=== PATIENT | female | born 1990 | race Two or more races ===

== ENCOUNTER 2017-11-21 15:45 | Emergency (ER) | payer BC ==
[2017-11-21 15:51] VITALS: BP 106/56; PULSE 68; TEMP 98.3; BMI 25.8
--- NOTE | 2017-11-21 15:51 | PDOC ---
Rapid Medical Evaluation Time Seen by Provider: 11/21/17 15:48 Medical Evaluation: I have performed a brief in-person evaluation of this patient. The patient presents with a chief complaint of: 8 weeks (LMP 09/25/17) with slight vaginal bleeding and lower abdominal pain Pertinent physical exam findings: none I have ordered the following: labs, ultrasound, UA/culture The patient will proceed to the ED for further evaluation. Discharge Disposition - Diagnosis Vaginal bleeding affecting early - Referrals - Patient Instructions - Post Discharge Activity
[2017-11-21 17:16] LABS: BASO % 0.4 % (0-2.0); EOS % 0.7 % (0-4.5); HEMATOCRIT 40.2 % (32.4-45.2); HEMOGLOBIN 13.3 GM/dL (10.7-15.3); LYMPH % 25.6 % (8-40); MCH 28.4 pg (25.7-33.7); MCHC 33.2 g/dl (32.0-36.0); MEAN CELL VOLUME 85.6 fl (80-96); MEAN PLT VOLUME 9.4 fl (7.5-11.1); MONO % 8.6 % (3.8-10.2); NEUT % 64.7 % (42.8-82.8); PLATELET COUNT 271 K/MM3 (134-434); RDW 13.9 % (11.6-15.6); WHITE BLOOD COUNT 5.8 K/mm3 (4.0-10.0)
[2017-11-21 17:17] LABS: URINE APPEARANCE CLEAR; URINE BILIRUBIN NEGATIVE (<2.0 mg/dL); URINE COLOR YELLOW; URINE GLUCOSE (UA) NEGATIVE (NEGATIVE); URINE KETONE NEGATIVE (NEGATIVE); URINE NITRITE NEGATIVE (NEGATIVE); URINE PROTEIN NEGATIVE (NEGATIVE); URINE UROBILINOGEN NEGATIVE mg/dL (0.2-1.0)
[2017-11-21 17:19] LABS: URINE LEUK ESTERASE 2+ (NEGATIVE)
[2017-11-21 17:20] LABS: EPI CELLS RARE /HPF (FEW); URINE BACTERIA RARE /hpf (NONE SEEN); URINE MUCUS RARE
[2017-11-21 17:52] LABS: ALBUMIN 3.9 g/dl (3.4-5.0); ANION GAP 6 (8-16); BLOOD UREA NITROGEN 13 mg/dL (7-18); CALCIUM 8.7 mg/dL (8.5-10.1); CHLORIDE 104 mmol/L (98-107); CO2 29 mmol/L (21-32); CREATININE 0.7 mg/dL (0.55-1.02); GLUCOSE,RANDOM 64 mg/dL (74-106); SGOT/AST 9 U/L (15-37); SGPT/ALT 15 U/L (12-78); SODIUM 139 mmol/L (136-145)
[2017-11-21 18:10] LABS: ALK PHOS 62 U/L (45-117); BILIRUBIN,TOTAL 0.3 mg/dL (0.2-1.0); TOT PROT 7.8 g/dl (6.4-8.2)
[2017-11-21] MEDS ORDERED: NITROFURANTOIN MACROCRYSTAL 50 MG CAPSULE (FP) PO SCH (19:00)
--- NOTE | 2017-11-21 19:03 | PDOC ---
History of Present Illness - General Chief Complaint: Vaginal Bleeding Stated Complaint: ABD PAIN, BLEEDING (6 WKS ) Time Seen by Provider: 11/21/17 15:48 - History of Present Illness Initial Comments: 11/21/17 18:57 26 F with no PMH, 8 weeks by LMP, presents to ED with 1 day of abdominal cramps and vaginal bleeding. Pt reports that she started having lower abdominal cramps today, as if she were starting her period. Pt endorses seeing a small amount of dark blood on her underwear. Denies any clots or bright red blood. Pt denies dysuria. Denies F/C. Denies flank pain. Past History - Past Medical History Allergies/Adverse Reactions: Allergies Allergy/AdvReac Type Severity Reaction Status Date / Time No Known Allergies Allergy Verified 11/21/17 15:48 Home Medications: Ambulatory Orders Nitrofurantoin Monohyd/M-Cryst [Macrobid -] 100 mg PO BID #14 capsule 11/21/17 COPD: No - Suicide/Smoking/Psychosocial Hx Smoking History: Never smoked Have you smoked in the past 12 months: No Information on smoking cessation initiated: No Hx Alcohol Use: No Drug/Substance Use Hx: No Substance Use Type: None Review of Systems - Review of Systems Comments:: 11/21/17 18:58 "GENERAL/CONSTITUTIONAL: No fever or chills. No weakness. HEAD, EYES, EARS, NOSE AND THROAT: No change in vision. No ear pain or discharge. No sore throat. CARDIOVASCULAR: No chest pain or shortness of breath. RESPIRATORY: No cough, wheezing, or hemoptysis. GASTROINTESTINAL: + lower abdominal cramps, No nausea, vomiting, diarrhea or constipation. GENITOURINARY: + vaginal spotting, No dysuria, frequency, or change in urination. MUSCULOSKELETAL: No joint or muscle swelling or pain. No neck or back pain. SKIN: No rash NEUROLOGIC: No headache, vertigo, loss of consciousness, or change in strength/ sensation. ENDOCRINE: No increased thirst. No abnormal weight change. HEMATOLOGIC/LYMPHATIC: No anemia, easy bleeding, or history of blood clots. ALLERGIC/IMMUNOLOGIC: No hives or skin allergy. " *Physical Exam - Vital Signs Last Vital Signs Temp Pulse Resp BP Pulse Ox 98.3 F 68 18 106/56 100 11/21/17 15:49 11/21/17 15:49 11/21/17 15:49 11/21/17 15:49 11/21/17 15:49 - Physical Exam Comments: 11/21/17 19:00 "GENERAL: Awake, alert, and fully oriented, in no acute distress. HEAD: No signs of trauma EYES: PERRLA, EOMI, sclera anicteric, conjunctiva clear ENT: Auricles normal inspection, hearing grossly normal, nares patent, oropharynx clear without exudates. Moist mucosa NECK: Nontender, no stepoffs, Normal ROM, supple, no lymphadenopathy, JVD, or masses LUNGS: Breath sounds equal, clear to auscultation bilaterally. No wheezes, and no crackles HEART: Regular rate and rhythm, normal S1 and S2, no murmurs, rubs or gallops ABDOMEN: + mild suprapubic TTP, Soft, nontender, normoactive bowel sounds. No guarding, no rebound. No masses : no blood or discharge in vault, no CMT, os closed EXTREMITIES: Normal range of motion, no edema. No clubbing or cyanosis. No cords, erythema, or tenderness NEUROLOGICAL: Cranial nerves II through XII intact. 5/5 strength and sensation in all extremities, Normal speech, normal gait, normal cerebellar function SKIN: Warm, Dry, normal turgor, no rashes or lesions noted. " ED Treatment Course - LABORATORY CBC & Chemistry Diagram: 11/21/17 16:49 11/21/17 16:49 - ADDITIONAL ORDERS Additional order review: Laboratory Results 11/21/17 11/21/17 11/21/17 16:49 16:49 16:35 Sodium 139 Potassium 4.0 Chloride 104 Carbon Dioxide 29 Anion Gap 6 L BUN 13 Creatinine 0.7 Creat Clearance w eGFR > 60 Random Glucose 64 L Calcium 8.7 Total Bilirubin 0.3 AST 9 L ALT 15 Alkaline Phosphatase 62 Total Protein 7.8 Albumin 3.9 Beta HCG, Quant 62414.1 Urine Color Yellow Urine Appearance Clear Urine pH 7.0 Ur Specific [place] 1.018 Urine Protein Negative Urine Glucose (UA) Negative Urine Ketones Negative Urine Blood 2+ H Urine Nitrite Negative Urine Bilirubin Negative Urine Urobilinogen Negative Ur Leukocyte Esterase 2+ H Urine WBC (Auto) 3 Urine RBC (Auto) <1 Ur Epithelial Cells Rare Urine Bacteria Rare Urine Mucus Rare Blood Type A POSITIVE Antibody Screen Negative 11/21/17 16:49 RBC 4.70 MCV 85.6 MCHC 33.2 RDW 13.9 MPV 9.4 Neutrophils % 64.7 Lymphocytes % 25.6 Monocytes % 8.6 Eosinophils % 0.7 Basophils % 0.4 Medical Decision Making - Medical Decision Making 11/21/17 18:01 26 F with vaginal spotting and suprapubic cramps, @ 8 weeks by LMP. - Labs, T&S - UA, UCx - TVUS 11/21/17 19:02 Labs wnl TVUS with IUP @ 6 weeks. UA with + LE, 3 WBCs Given suprapubic pain, will tx as UTI Pt is well appearing, with normal vitals. Clinically stable for DC at this time. I discussed the physical exam findings, ancillary test results and final diagnoses with the patient. I answered all of the patient's questions. The patient was satisfied with the care received and felt comfortable with the discharge plan and treatment plan. The patient agrees to follow up with the primary care physician within 24-72 hours. *DC/Admit/Observation/Transfer Diagnosis at time of Disposition: Vaginal bleeding affecting early - Discharge Dispostion Disposition: HOME - Prescriptions Prescriptions: Nitrofurantoin Monohyd/M-Cryst [Macrobid -] 100 mg PO BID #14 capsule - Referrals Referrals: Milagros Velázquez MD [Staff Physician] - - Patient Instructions Printed Discharge Instructions: DI for Vaginal Bleeding During Additional Instructions: Your ultrasound showed a normal at 6 weeks today. You may have a urine infection. Take the antibiotics as prescribed to treat it. If you experience worsening pain, bleeding, fevers, or any other concerning symptoms, return to the ER immediately. Otherwise, follow up with an medication nurse within 1 week for further evaluation. Call the number provided to make an appointment. - Post Discharge Activity - Attestations Physician Attestion: 11/21/17 19:05 I, Dr. Ever Perez MD, attest that this document has been prepared under my direction and personally reviewed by me in its entirety. I further attest, that it accurately reflects all work, treatment, procedures and medical decision -making performed by me.
[2017-11-21] MEDS ORDERED: NITROFURANTOIN MACROCRYSTAL 50 MG CAPSULE (FP) ONE (19:04)
== END 2017-11-21 19:35 | disposition home or self-care (01) ==
LOC: JER 15:45
DX: O26.891 Other specified pregnancy related conditions, first trimester (principal); O20.8 Other hemorrhage in early pregnancy; O23.31 Infections of other parts of urinary tract in pregnancy, first trimester; Z3A.08 8 weeks gestation of pregnancy
CPT/HCPCS: 36415; 76817-TC; 80053; 81003; 81015; 84702; 85025; 86850; 86900; 86901; 87086; 99284-25

== ENCOUNTER 2017-11-23 07:54 | Emergency (ER) | payer BC ==
[2017-11-23 08:04] VITALS: BMI 29.4
--- NOTE | 2017-11-23 08:17 | PDOC ---
History of Present Illness <Ranjit Barnett - Last Filed: 11/23/17 11:18> - History of Present Illness Initial Comments: 11/23/17 09:04 26 yo F , 6 weeks , LMP September 25, here with lower abdominal pain and vaginal bleeding. She soaked through a full pad this morning before she came to the ER. She claims 2 big clots came out of her vagina this morning before arriving in the ER. She had an Ultrasound done on Sunday which showed a viable intrauterine consistent with 6 weeks based on crown rump length. She was here on Sunday with a similar complaint and was diagnosed with a UTI and prescribed nitrofurantoin. She had an Insurance issue and did not end up taking the medication for the first time until this morning. Denies Nausea, vomiting, diarrhea, dizziness, lightheadedness, recent fevers, syncope, trauma, sexual intercourse. 11/23/17 09:10 11/23/17 09:28 <Cedric La - Last Filed: 11/23/17 11:31> - General Chief Complaint: Pain Stated Complaint: 6wk,BLEEDING Time Seen by Provider: 11/23/17 08:11 Past History <Ranjit Barnett - Last Filed: 11/23/17 11:18> - Past Medical History COPD: No - Suicide/Smoking/Psychosocial Hx Smoking History: Never smoked Have you smoked in the past 12 months: No Information on smoking cessation initiated: No Hx Alcohol Use: No Drug/Substance Use Hx: No Substance Use Type: None <Cedric La - Last Filed: 11/23/17 11:31> - Past Medical History Allergies/Adverse Reactions: Allergies Allergy/AdvReac Type Severity Reaction Status Date / Time No Known Allergies Allergy Verified 11/23/17 08:00 Home Medications: Ambulatory Orders Nitrofurantoin Monohyd/M-Cryst [Macrobid -] 100 mg PO BID #14 capsule 11/21/17 Review of Systems - Review of Systems Comments:: 11/23/17 09:14 GASTROINTESTINAL: Positive: Abdominal pain Absent: abdominal distension, nausea, vomiting, diarrhea, constipation, melena, hematochezia GENITOURINARY: Positive: hematuria, genital pain, Vaginal bleeding Absent: dysuria, frequency, urgency, hesitancy, flank pain, CONSTITUTIONAL: Absent: fever, chills, diaphoresis, generalized weakness, malaise, loss of appetite HEENT: Absent: rhinorrhea, nasal congestion, throat pain, throat swelling, difficulty swallowing, mouth swelling, ear pain, eye pain, visual Changes CARDIOVASCULAR: Absent: chest pain, syncope, palpitations, irregular heart rate, lightheadedness , peripheral edema RESPIRATORY: Absent: cough, shortness of breath, dyspnea with exertion, orthopnea, wheezing, stridor, hemoptysis MUSCULOSKELETAL: Absent: myalgia, arthralgia, joint swelling SKIN: Absent: rash, itching, pallor HEMATOLOGIC/IMMUNOLOGIC: Absent: easy bleeding, easy bruising, lymphadenopathy, frequent infections ENDOCRINE: Absent: unexplained weight gain, unexplained weight loss, heat intolerance, cold intolerance NEUROLOGIC: Absent: headache, focal weakness or paresthesias, dizziness, unsteady gait, seizure, mental status changes, bladder or bowel incontinence PSYCHIATRIC: Absent: anxiety, depression, suicidal or homicidal ideation, hallucinations. 11/23/17 09:15 <Cedric La - Last Filed: 11/23/17 11:31> *Physical Exam - Vital Signs Last Vital Signs Temp Pulse Resp BP Pulse Ox 98.2 F 82 16 110/69 99 11/23/17 08:01 11/23/17 08:01 11/23/17 08:01 11/23/17 08:01 11/23/17 08:01 <Ranjit Barnett - Last Filed: 11/23/17 11:18> - Vital Signs Last Vital Signs Temp Pulse Resp BP Pulse Ox 98.2 F 82 16 110/69 99 11/23/17 08:01 11/23/17 08:01 11/23/17 08:01 11/23/17 08:01 11/23/17 08:01 - Physical Exam Comments: 11/23/17 09:17 Pelvic Exam: Significant amount of blood dripping from the vaginal vault. Cervix not visualized bc too much blood to see. On bimanual the cervix is closed. There WAS cervical motion tenderness. No adnexal tenderness. ABDOMINAL: Gravid uterus consistent with 6 weeks . Suprapubic tenderness to palpation with radiation to the groin. abdomen is Soft, Non-distended. No rebound or guarding. No organomegaly. GENERAL: Well developed, well nourished. Awake and alert. No acute distress. HEENT: Normocephalic, atraumatic. PERRLA, EOMI. No conjunctival pallor. Sclera are non- icteric. Moist mucous membranes. Oropharynx is clear. NECK: Supple. Full ROM. No JVD. Carotid pulses 2+ and symmetric, without bruits. No thyromegaly. No lymphadenopathy. CARDIOVASCULAR: Regular rate and rhythm. No murmurs, rubs, or gallops. Distal pulses are 2+ and symmetric. PULMONARY: No evidence of respiratory distress. Lungs clear to auscultation bilaterally. No wheezing, rales or rhonchi. MUSCULOSKELETAL Normal range of motion at all joints. No bony deformities or tenderness. No CVA tenderness. EXTREMITIES: No cyanosis. No clubbing. No edema. No calf tenderness. SKIN: Warm and dry. Normal capillary refill. No rashes. No jaundice. NEUROLOGICAL: Alert, awake, appropriate. Cranial nerves 2-12 intact. No deficits to light touch and temperature in face, upper extremities and lower extremities. No motor deficits in the in face, upper extremities and lower extremities. Normoreflexic in the upper and lower extremities. Normal speech. Toes are down-going bilaterally. Gait is normal without ataxia. PSYCHIATRIC: Cooperative. Good eye contact. Appropriate mood and affect. <Cedric La - Last Filed: 11/23/17 11:31> ED Treatment Course - LABORATORY CBC & Chemistry Diagram: 11/23/17 09:02 11/23/17 09:02 - ADDITIONAL ORDERS Additional order review: Laboratory Results 11/23/17 11/23/17 11/23/17 09:02 09:02 09:02 PT with INR 12.90 INR 1.14 PTT (Actin FS) 37.6 Sodium 139 Potassium 3.8 Chloride 106 Carbon Dioxide 25 Anion Gap 8 BUN 12 Creatinine 0.6 Creat Clearance w eGFR > 60 Random Glucose 91 Calcium 8.6 Total Bilirubin 0.5 AST 10 L ALT 14 Alkaline Phosphatase 57 Total Protein 7.4 Albumin 3.7 Beta HCG, Quant 30781.0 Urine Color Urine Appearance Urine pH Ur Specific [place] Urine Protein Urine Glucose (UA) Urine Ketones Urine Blood Urine Nitrite Urine Bilirubin Urine Urobilinogen Ur Leukocyte Esterase Urine WBC (Auto) Urine RBC (Auto) Blood Type A POSITIVE Antibody Screen Negative 11/23/17 09:02 PT with INR INR PTT (Actin FS) Sodium Potassium Chloride Carbon Dioxide Anion Gap BUN Creatinine Creat Clearance w eGFR Random Glucose Calcium Total Bilirubin AST ALT Alkaline Phosphatase Total Protein Albumin Beta HCG, Quant Urine Color Red Urine Appearance Clear Urine pH 7.0 Ur Specific [place] 1.009 Urine Protein 2+ H Urine Glucose (UA) Negative Urine Ketones Negative Urine Blood 3+ H Urine Nitrite Negative Urine Bilirubin Negative Urine Urobilinogen Negative Ur Leukocyte Esterase Negative Urine WBC (Auto) 147 Urine RBC (Auto) 917 Blood Type Antibody Screen 11/23/17 09:02 RBC 4.58 MCV 85.4 MCHC 33.6 RDW 13.6 MPV 9.1 Neutrophils % 67.8 Lymphocytes % 24.6 Monocytes % 6.7 Eosinophils % 0.4 Basophils % 0.5 - Medications Given in the ED: ED Medications Discontinued Medications Generic Name Dose Route Start Last Admin Trade Name Agustina PRN Reason Stop Dose Admin Acetaminophen 1,000 mg 11/23/17 09:45 11/23/17 10:05 Ofirmev Injection - IVPB 11/23/17 09:46 1,000 mg ONCE ONE Administration Sodium Chloride 1,000 ml 11/23/17 09:42 11/23/17 10:05 Normal Saline - IV 11/23/17 09:43 1,000 ml ONCE ONE Administration <Ranjit Barnett - Last Filed: 11/23/17 11:18> - LABORATORY CBC & Chemistry Diagram: 11/23/17 09:02 11/23/17 09:02 <Cedric La - Last Filed: 11/23/17 11:31> Medical Decision Making - Medical Decision Making 11/23/17 09:21 26 yo F 6 weeks , , LMP September 25, here with lower abdominal pain, vaginal bleeding, clots coming out of vagina. She was here in the ER on Sun and diagnosed with a UTI. She first took her Abx this morning. Pelvic exam showed copious clood. Patient is sitting comfortably despite large amount of blood. No lightheadedness, dizziness, nausea, or vomiting. Patient tolerating PO well. Checking HCG trend to assess for status. Plan: cbc to assess Hb, Cmp, UA, u-culture, more labs, Transvaginal US, B Hcg, fluids, re-assess. HCG dropped significantly from 2 days ago. Repeat TVUS showed NO viable . Results are supportive of a miscarriage. Patient is being sent home on Abx, and advised how to proceed and monitor bloodloss. She will FU in the next 2 days with a knot borer. 11/23/17 09:28 11/23/17 11:29 <Cedric La - Last Filed: 11/23/17 11:31> *DC/Admit/Observation/Transfer - Discharge Dispostion Decision to Admit order: No <Ranjit Barnett - Last Filed: 11/23/17 11:18> <Cedric La - Last Filed: 11/23/17 11:31> Diagnosis at time of Disposition: Miscarriage - Discharge Dispostion Disposition: HOME - Referrals Referrals: Bret Acosta MD [Staff Physician] - - Patient Instructions Printed Discharge Instructions: Miscarriage Additional Instructions: Continue taking your antibiotics as prescribed. Follow-up with [facility] or with Dr. Acosta in 2-3 days. Call today for an appointment. Return to the emergency department for any fever returning abdominal pain nausea vomiting bleeding greater than 2 pads an hour if he feel lightheaded or dizzy or for any concerns.
[2017-11-23 09:17] LABS: URINE APPEARANCE CLEAR; URINE BILIRUBIN NEGATIVE (<2.0 mg/dL); URINE COLOR RED; URINE GLUCOSE (UA) NEGATIVE (NEGATIVE); URINE KETONE NEGATIVE (NEGATIVE); URINE LEUK ESTERASE NEGATIVE (NEGATIVE); URINE NITRITE NEGATIVE (NEGATIVE); URINE UROBILINOGEN NEGATIVE mg/dL (0.2-1.0)
[2017-11-23 09:21] LABS: BASO % 0.5 % (0-2.0); EOS % 0.4 % (0-4.5); HEMATOCRIT 39.1 % (32.4-45.2); HEMOGLOBIN 13.2 GM/dL (10.7-15.3); LYMPH % 24.6 % (8-40); MCH 28.7 pg (25.7-33.7); MCHC 33.6 g/dl (32.0-36.0); MEAN CELL VOLUME 85.4 fl (80-96); MEAN PLT VOLUME 9.1 fl (7.5-11.1); MONO % 6.7 % (3.8-10.2); NEUT % 67.8 % (42.8-82.8); PLATELET COUNT 253 K/MM3 (134-434); RBC 4.58 M/mm3 (3.60-5.2); RDW 13.6 % (11.6-15.6)
[2017-11-23 09:24] LABS: URINE PROTEIN 2+ (NEGATIVE)
[2017-11-23] MEDS ORDERED: SODIUM CHLORIDE 0.9% 500 ML INFUS.BAG IV ONE (09:42)
[2017-11-23 09:43] LABS: ALBUMIN 3.7 g/dl (3.4-5.0); ALK PHOS 57 U/L (45-117); ANION GAP 8 (8-16); BILIRUBIN,TOTAL 0.5 mg/dL (0.2-1.0); BLOOD UREA NITROGEN 12 mg/dL (7-18); CALCIUM 8.6 mg/dL (8.5-10.1); CHLORIDE 106 mmol/L (98-107); CO2 25 mmol/L (21-32); CREATININE 0.6 mg/dL (0.55-1.02); GLUCOSE,RANDOM 91 mg/dL (74-106); POTASSIUM 3.8 mmol/L (3.5-5.1); SGOT/AST 10 U/L (15-37); SGPT/ALT 14 U/L (12-78); SODIUM 139 mmol/L (136-145); TOT PROT 7.4 g/dl (6.4-8.2)
[2017-11-23] MEDS ORDERED: ACETAMINOPHEN 1000 MG/100 ML VIAL (NON FORMULARY) IVPB ONE (09:45)
[2017-11-23] MEDS ORDERED: ACETAMINOPHEN INJECTION 100 ML IVPB ONE (09:53)
--- NOTE | 2017-11-23 10:05 | PDOC ---
Attending Attestation - HPI HPI: 11/23/17 10:07 The patient is a 26 year old Female, , 6 weeks , LMP September 25, who presents to the emergency department for lower abdominal pain and vaginal bleeding today. She reportedly soaked through a full pad this morning before coming to the ER. She states she passed 2 big clots vaginally this morning. She had an Ultrasound done on Sunday which showed a viable intrauterine consistent with 6 weeks based on crown rump length. She states was here 2 days ago with a similar complaint, was diagnosed with a UTI and prescribed nitrofurantoin, but did not take the medication until this morning. The patient denies chest pain, shortness of breath, headache and dizziness. The patient denies fever, chills, nausea, vomit, diarrhea and constipation. The patient denies dysuria, frequency, urgency and hematuria. Allergies: NKDA - Physicial Exam PE: 11/23/17 10:08 ROS: A complete review of 10 out of 10 review of systems is taken and is negative apart from what is previously mentioned below and in the HPI. Vitals: Triage vital signs reviewed General Appearance: No acute distress, well nourished, well developed Head: Atraumatic Eyes: Pupils equal reactive round, extraocular movement intact Ears: TM's normal bilaterally Nose: Nares patent bilaterally; no nasal congestion Throat: Posterior oropharynx without erythema, mucous membranes moist Neck: Supple; No nuchal rigidity Chest Wall: Nontender Cardiac: Regular rate and rhythm, no murmurs, no rubs, no gallops Lungs: Clear to auscultation bilateral, good air movement bilaterally Abdomen: Soft, nondistended, normal bowel sounds, nontender to palpation Genitourinary: Rectal: Exam deferred Extremities: Full range of motion to all extremities, no cyanosis, clubbing, or edema Skin: Warm and dry, no rashes or lesions, no rash, no petechiae Neuro: AOX3; Cranial Nerves 2-12 grossly intact, Strength intact to all extremities, Sensation intact to all extremities, gait normal Psych: Normal mood, normal affect - Medical Decision Making 11/23/17 10:07 The patient is a 26 year old Female, , 6 weeks , LMP September 25, who presents to the emergency department for lower abdominal pain and vaginal bleeding today. Plan: labs, meds, US, reassess 11/23/17 10:07 Documentation prepared by Tamela Wheeler, acting as pesticide use medical coordinator for Ranjit Barnett MD <Tamela Wheeler - Last Filed: 11/23/17 11:22> - Resident Resident Name: Cedric La - ED Attending Attestation I have performed the following: I have examined & evaluated the patient, The case was reviewed & discussed with the resident, I agree w/resident's findings & plan, Exceptions are as noted - Medical Decision Making 26 years old no significant past medical history approximately 6 weeks seen in the ED 2 days ago for vaginal bleeding had a transvaginal ultrasound serum hCG which demonstrated a live intrauterine Today presents with progressive bleeding and clots Repeat ultrasounds demonstrates no IUP data downtrending Reevaluation patient with no abdominal pain. History examination consistent with miscarriage os was open on resident's examination. We provided the patient with [facility], she was also provided with [facility] as a second option She will continue her antibiotics for UTI she will follow-up with [facility]. She' ll return to the emergency department for any fever severe belly pain heavy vaginal bleeding or for any concerns. <Ranjit Barnett - Last Filed: 11/23/17 11:30>
[2017-11-23 10:09] LABS: INR 1.14 (0.82-1.09); PROTHROMBIN TIME (PATIENT) 12.9 SEC (9.7-13.0)
[2017-11-23 10:11] LABS: ACTIVATED PTT 37.6 SECONDS (25.2-36.5)
[2017-11-23 11:41] VITALS: BP 113/73; PULSE 71; TEMP 98
== END 2017-11-23 11:41 | disposition home or self-care (01) ==
LOC: JER 07:54
PROC: 3E0337Z Introduction of Electrolytic and Water Balance Substance into Peripheral Vein, Percutaneous Approach (ICD-10-PCS; principal; 2017-11-23)
PROC: 3E033NZ Introduction of Analgesics, Hypnotics, Sedatives into Peripheral Vein, Percutaneous Approach (ICD-10-PCS; 2017-11-23)
DX: O26.891 Other specified pregnancy related conditions, first trimester (principal); O02.1 Missed abortion; Z3A.01 Less than 8 weeks gestation of pregnancy
CPT/HCPCS: 36415; 76817-TC; 80053; 81003; 81015; 84702; 85025; 85610; 85730; 86850; 86900; 86901; 87086; 99281-25; J0131

== ENCOUNTER 2019-06-16 02:40 | Inpatient (IN) | payer OTHER ==
[2019-06-16] MEDS: DEXTROSE 5%-LACTATED RINGERS 1,000 ML IV SCH ×2 (03:45→08:31)
[2019-06-16 04:07] LABS: BASO % 0.2 % (0-2.0); EOS % 0.7 % (0-4.5); HEMATOCRIT 38.8 % (32.4-45.2); HEMOGLOBIN 13.2 GM/dL (10.7-15.3); LYMPH % 23.7 % (8-40); MCH 29.4 pg (25.7-33.7); MEAN CELL VOLUME 86.4 fl (80-96); MEAN PLT VOLUME 9.1 fl (7.5-11.1); MONO % 6.1 % (3.8-10.2); NEUT % 69.3 % (42.8-82.8); PLATELET COUNT 210 K/MM3 (134-434); RBC 4.48 M/mm3 (3.60-5.2); RDW 14.2 % (11.6-15.6)
[2019-06-16 04:14] LABS: INR 0.93 (0.83-1.09)
[2019-06-16 04:16] LABS: ACTIVATED PTT 29.3 SECONDS (25.2-36.5)
[2019-06-16 04:22] VITALS: BMI 28.1
[2019-06-16 04:37] LABS: ALBUMIN 2.6 g/dl (3.4-5.0); BILIRUBIN,TOTAL 0.3 mg/dL (0.2-1); BLOOD UREA NITROGEN 7.2 mg/dL (7-18); CREATININE 0.6 mg/dL (0.55-1.3); TOT PROT 6.6 g/dl (6.4-8.2)
[2019-06-16 06:17] LABS: EPI CELLS 2.3 /HPF (0-5/HPF); HYALINE CASTS 15 /lpf (0-8); PH,URINE 6.5 (5.0-8.0); URINE APPEARANCE CLOUDY; URINE BACTERIA 236.8 /hpf (NEGATIVE); URINE BILIRUBIN NEGATIVE (NEGATIVE); URINE COLOR YELLOW; URINE GLUCOSE (UA) NEGATIVE (NEGATIVE); URINE KETONE NEGATIVE (NEGATIVE); URINE LEUK ESTERASE 2+ (NEGATIVE); URINE NITRITE NEGATIVE (NEGATIVE); URINE PROTEIN NEGATIVE (NEGATIVE); URINE RBC 4 /hpf (0-4); URINE UROBILINOGEN 0.2 mg/dL (0.2-1.0); URINE WBC 37 /hpf (0-5)
[2019-06-16] MEDS ORDERED: PROMETHAZINE HCL 25 MG/1 ML VIAL ONE (07:22)
[2019-06-16] MEDS ORDERED: BUTORPHANOL TARTRATE 1 MG/ML VIAL ONE ×2 (07:22)
[2019-06-16] MEDS ORDERED: BUTORPHANOL TARTRATE 1 MG/ML VIAL IVPB ONE (08:15)
[2019-06-16] MEDS ORDERED: PROMETHAZINE HCL 25 MG/1 ML VIAL IVPB ONE (08:15)
--- NOTE | 2019-06-16 08:55 | PN ---
Progress Note (short form) - Note Progress Note: cx 4 cm, 80 vx -3 mi, fhr caat 1, irregulaar contraction , advised pitocin, risks and benefit discussed
--- NOTE | 2019-06-16 08:57 | HP ---
Past Medical History - Primary Care Physician PCP:: Brad Burnett - Admission Chief Complaint: 40 weeks, , labor History of Present Illness: 28 yo f , 40.6 weeks, in labor , cx 4 cm 80 vx -2 mi, fhr cat 1, irregular contraction, no rom, no bleeding, no fever. care at [facility] care , no complication . GBS negative History Source: Patient Limitations to Obtaining History: No Limitations - Past Medical History ...: 2 ...Para: 0 ...Term: 0 ...: 0 ...Spon : 1 ... Weeks Gestation by Dates: 40.6 ...EDC by Dates: 06/10/19 - Past Surgical History Hx Myomectomy: No Hx Transabdominal Cerclage: No - Smoking History Smoking history: Never smoked Have you smoked in the past 12 months: No - Alcohol/Substance Use Hx Alcohol Use: No - Social History Usual Living Arrangement: Yes: With Spouse History of Recent Travel: No Home Medications - Allergies Allergies/Adverse Reactions: Allergies Allergy/AdvReac Type Severity Reaction Status Date / Time No Known Allergies Allergy Verified 06/16/19 03:33 - Home Medications Home Medications: Ambulatory Orders Vitamins (Sjr) - 1 tab PO DAILY 06/16/19 Review of Systems - Review of Systems Constitutional: reports: No Symptoms Eyes: reports: No Symptoms HENT: reports: No Symptoms Neck: reports: No Symptoms Cardiovascular: reports: No Symptoms Respiratory: reports: No Symptoms Gastrointestinal: reports: No Symptoms Genitourinary: reports: No Symptoms Breasts: reports: No Symptoms Reported Musculoskeletal: reports: No Symptoms Integumentary: reports: No Symptoms Neurological: reports: No Symptoms Endocrine: reports: No Symptoms Hematology/Lymphatic: reports: No Symptoms Psychiatric: reports: No Symptoms Physical Exam - Maternity Vital Signs: Vital Signs Temperature 98.5 F 06/16/19 08:00 Pulse Rate 80 06/16/19 08:00 Respiratory Rate 18 06/16/19 08:00 Blood Pressure 105/57 L 06/16/19 08:00 O2 Sat by Pulse Oximetry (%) Constitutional: Yes: Well Nourished, No Distress, Calm Eyes: Yes: WNL, Conjunctiva Clear, EOM Intact HENT: Yes: WNL, Atraumatic, Normocephalic Neck: Yes: WNL, Supple, Trachea Midline Cardiovascular: Yes: WNL, Regular Rate and Rhythm Lungs: Clear to auscultation Breast(s): Yes: WNL - Abdominal Exam/OB Fundal Height: 38 Number of Fetuses: Single Presentation: Vertex Contractions: Yes Regularity: Irregular Intensity: Mod/Strong Monitor Mode: External Heart Rate Location: [facility] Category: I Accelerations: Non-Uniform Decelerations: None - Vaginal Exam/OB Vaginal Bleediing: No Speculum Exam: No Dilatation (cm): 4 cm Effacement (%): 80 Amniotic Membrane Status: Intact Presentation: Vertex/Position Station: -2 - Physical Exam Musculoskeletal: Yes: WNL Extremities: Yes: WNL Edema: Yes Edema: LLE: Trace, RLE: Trace Deep Tendon Reflex Grade: Normal +2 ...Motor Strength: WNL Psychiatric: Yes: WNL - Labs Lab Results: CBC, BMP 06/16/19 03:45 06/16/19 03:45 Hemorrhage Risk Assessment - Risk Factors Medium Risk Factors: Yes: None High Risk Factors: Yes: None Risk Score: 1 Risk Level: Medium Risk Problem List - Problems (1) Post term over 40 weeks Code(s): O48.0 - POST-TERM (2) Labor established Code(s): [id number] - Assessment/Plan admit [facility] pain management pitocin stimulation
[2019-06-16] MEDS ORDERED: OXYTOCIN 30 UNITS in 0.9% NS 30 UNIT/500 ML INFUS.BAG IVPB ONE (08:59)
[2019-06-16] MEDS ORDERED: OXYTOCIN 30 UNITS in 0.9% NS 30 UNIT/500 ML INFUS.BAG IVPB SCH (09:00)
[2019-06-16] MEDS ORDERED: FENTANYL/BUPIVACAINE/NS/PF - PCEA - 50 ML DISP.SYRIN EP ONE (12:33)
[2019-06-16] MEDS ORDERED: NALOXONE HCL 0.4 MG/ML VIAL IVPUSH PRN (13:25)
[2019-06-16] MEDS ORDERED: FENTANYL/BUPIVACAINE/NS/PF - PCEA - 50 ML DISP.SYRIN EP SCH (13:30)
[2019-06-16] MEDS ORDERED: OXYTOCIN 20 UNITS in 0.9% NS 20 UNIT/1,000 ML INFUS.BAG IV ONE (16:22)
--- NOTE | 2019-06-16 16:40 | PN ---
Progress Note (short form) - Note Progress Note: cx full 100 vx 0 arom scant fluid , clear , fhr cat 1, regular contractions, anticipate delivery soon
--- NOTE | 2019-06-16 17:24 | PN ---
Progress Note (short form) - Note Progress Note: cx full 100 vx 3+ pushing actively has early decel. anicipating delivery soon Problem List - Problems (1) Post term over 40 weeks Code(s): O48.0 - POST-TERM (2) Labor established Code(s): [id number] -
[2019-06-16] MEDS ORDERED: LIDOCAINE HCL 1% PRESERVATIVE FREE - 30ML VIAL ONE (17:36)
[2019-06-16] MEDS: OXYTOCIN 20 UNITS in 0.9% NS 20 UNIT/1,000 ML INFUS.BAG IV SCH ×2 (17:50→23:00)
[2019-06-16] MEDS: IBUPROFEN 600 MG TABLET (FP) PO PRN (18:00)
[2019-06-16] MEDS: ACETAMINOPHEN 325 MG TABLET (FP) PO PRN (18:00)
[2019-06-16] MEDS ORDERED: IBUPROFEN 600 MG TABLET (FP) PO ONE (18:01)
[2019-06-16] MEDS ORDERED: ACETAMINOPHEN 325 MG TABLET (FP) ONE (18:02)
[2019-06-16] MEDS ORDERED: BISACODYL 10 MG SUPP.RECT RC PRN (18:15)
[2019-06-16] MEDS ORDERED: BENZOCAINE 20% 57 GM BOTTLE TP PRN (18:15)
[2019-06-16] MEDS ORDERED: D5W-LR W/ 20 UNITS OXYTOCIN 1,000 ML IV SCH (18:15)
[2019-06-16] MEDS ORDERED: METHYLERGONOVINE MALEATE 0.2 MG/1 ML AMP IM PRN (18:15)
[2019-06-16] MEDS ORDERED: WITCH HAZEL 50% (TUCKS) 40 PAD/JAR PAD TP PRN (18:15)
[2019-06-16] MEDS ORDERED: BENZOCAINE 28 GM HEMORRHOIDAL OINTMENT TP PRN (18:15)
--- NOTE | 2019-06-16 18:20 | PN ---
Delivery - Delivery Vaginal Delivery: Spontaneous Type of Anesthesia: Local (RML episiotmy made, head delivered , nasopharynx suctioned , ant. and post, shoulder with no difficulty, live baby girl 9/ 9 , thin cord noted , cord wraped around babyfeet, RML episiotomy repaired in 3 layers , rectal exam negative,, EBL 400cc), Epidural Episiotomy/Laceration: Right Mediolateral Delivery, Single - Feeding Plan Initial Plan: Elected not to breastfeed exclusively throughout hospitalization
[2019-06-16] MEDS: FERROUS SO4 325 MG TABLET (FP) PO SCH (23:00)
[2019-06-17] MEDS: IBUPROFEN 600 MG TABLET (FP) PO PRN ×3 (01:37→19:46)
[2019-06-17] MEDS: ACETAMINOPHEN 325 MG TABLET (FP) PO PRN ×3 (01:37→19:45)
[2019-06-17 08:26] LABS: BASO % 0.1 % (0-2.0); EOS % 0.2 % (0-4.5); HEMOGLOBIN 10.7 GM/dL (10.7-15.3); LYMPH % 6.2 % (8-40); MCH 28.6 pg (25.7-33.7); MCHC 32.5 g/dl (32.0-36.0); MEAN CELL VOLUME 88.1 fl (80-96); MEAN PLT VOLUME 9.5 fl (7.5-11.1); NEUT % 90.5 % (42.8-82.8); PLATELET COUNT 199 K/MM3 (134-434); RBC 3.75 M/mm3 (3.60-5.2); RDW 14.7 % (11.6-15.6); WHITE BLOOD COUNT 26.1 K/mm3 (4.0-10.0)
[2019-06-17] MEDS: PRENATAL VITAMINS W/ FOLIC ACID TABLET (FP) PO SCH (09:49)
[2019-06-17] MEDS: FERROUS SO4 325 MG TABLET (FP) PO SCH ×2 (09:49→22:03)
--- NOTE | 2019-06-17 10:21 | PN ---
Post Progress Note - Subjective Subjective: Patient is doing well, ambulating, tolerating po, lochia decreased, voiding, breast feeding Post Day: 1 Type of Delivery: Vital Signs: Vital Signs Temperature 98.0 F 06/17/19 06:00 Pulse Rate 77 06/17/19 06:00 Respiratory Rate 18 06/17/19 06:00 Blood Pressure 107/47 L 06/17/19 06:00 O2 Sat by Pulse Oximetry (%) 100 06/16/19 19:00 Breast Exam: Yes: Other (deferred) Uterus: Yes: Fundus Firm Incision: Yes: Other Abdomen/GI: Yes: Abdomen soft Lochia, amount: Small Extremities: Yes: Calves non-tender Perineum: Yes: Intact Activity: Ambulating - Labs Labs: CBC WBC 26.1 K/mm3 (4.0-10.0) H 06/17/19 07:23 RBC 3.75 M/mm3 (3.60-5.2) 06/17/19 07:23 Hgb 10.7 GM/dL (10.7-15.3) 06/17/19 07:23 Hct 33.0 % (32.4-45.2) 06/17/19 07:23 MCV 88.1 fl (80-96) 06/17/19 07:23 MCH 28.6 pg (25.7-33.7) 06/17/19 07:23 MCHC 32.5 g/dl (32.0-36.0) 06/17/19 07:23 RDW 14.7 % (11.6-15.6) 06/17/19 07:23 Plt Count 199 K/MM3 (134-434) 06/17/19 07:23 MPV 9.5 fl (7.5-11.1) 06/17/19 07:23 Absolute Neuts (auto) 23.6 K/mm3 (1.5-8.0) H 06/17/19 07:23 Neutrophils % 90.5 % (42.8-82.8) H 06/17/19 07:23 Lymphocytes % 6.2 % (8-40) L D 06/17/19 07:23 Monocytes % 3.0 % (3.8-10.2) L 06/17/19 07:23 Eosinophils % 0.2 % (0-4.5) 06/17/19 07:23 Basophils % 0.1 % (0-2.0) 06/17/19 07:23 Nucleated RBC % 0 % (0-0) 06/17/19 07:23 Assessment/Plan 28 y/o on PPD # 1 in stable condition, WBC elevated and afebrile. -CBC tomorrow -Continue PP care -Anticipate D/C home tomorrow
[2019-06-17 11:01] LABS: ANISOCYTOSIS 1+; MACROCYTOSIS 1+; PLATELET ESTIMATE NORMAL
[2019-06-17 20:16] VITALS: TEMP 98.3
[2019-06-17] MEDS ORDERED: SENNOSIDES/DOCUSATE COMBO (SENNA PLUS) TABLET (UD) PO PRN (22:00)
[2019-06-18] MEDS: IBUPROFEN 600 MG TABLET (FP) PO PRN (07:05)
[2019-06-18] MEDS: ACETAMINOPHEN 325 MG TABLET (FP) PO PRN (07:05)
[2019-06-18 08:19] VITALS: BP 106/68; PULSE 63
[2019-06-18 08:31] LABS: BASO % 0.5 % (0-2.0); EOS % 0.9 % (0-4.5); HEMATOCRIT 30.4 % (32.4-45.2); HEMOGLOBIN 10.2 GM/dL (10.7-15.3); LYMPH % 12.9 % (8-40); MCH 29.4 pg (25.7-33.7); MCHC 33.5 g/dl (32.0-36.0); MEAN CELL VOLUME 87.7 fl (80-96); MEAN PLT VOLUME 9.4 fl (7.5-11.1); MONO % 3.8 % (3.8-10.2); NEUT % 81.9 % (42.8-82.8); PLATELET COUNT 198 K/MM3 (134-434); RBC 3.47 M/mm3 (3.60-5.2); RDW 14.3 % (11.6-15.6); WHITE BLOOD COUNT 12.7 K/mm3 (4.0-10.0)
--- NOTE | 2019-06-18 09:03 | DS ---
Physical Exam-[employer] Vital Signs: Vital Signs Temperature 98.3 F 06/18/19 08:00 Pulse Rate 63 06/18/19 08:00 Respiratory Rate 18 06/18/19 08:00 Blood Pressure 106/68 06/18/19 08:00 O2 Sat by Pulse Oximetry (%) 100 06/16/19 19:00 Constitutional: Yes: Well Nourished Eyes: Yes: WNL HENT: Yes: WNL, Normocephalic Neck: Yes: WNL Cardiovascular: Yes: WNL, Regular Rate and Rhythm Respiratory: Yes: WNL Gastrointestinal: Yes: WNL Renal/: Yes: WNL ....Post : Yes: Uterus firm (below umblicus), Uterus non-tender, Moderate lochia rubra (perineum intact , epi wound healing) Breast(s): Yes: WNL (breast feeding, soft) Musculoskeletal: Yes: WNL Extremities: Yes: WNL. No: Calf Tenderness Edema: LLE: Trace, RLE: Trace Integumentary: Yes: WNL Neurological: Yes: WNL ...Motor Strength: WNL Psychiatric: Yes: WNL, Alert, Oriented Labs: CBC, BMP 06/18/19 07:45 06/16/19 03:45 Delivery - Delivery Vaginal Delivery: Spontaneous Type of Anesthesia: Local, Epidural Episiotomy/Laceration: Right Mediolateral EBL (cc): 400 Delivery, Single - Stages of Labor Date 1st Stage Initiatied: 06/15/19 Time 1st Stage Initiated: 21:00 Date 2nd Stage Initiated: 06/16/19 Time 2nd Stage Initiated: 16:12 Date of Delivery: 06/16/19 Time of Delivery: 17:48 Time Placenta Delivered: 17:50 - 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 Gender: Female Weight: 7 lb 4 oz Position: Left, OA Total Hours ROM (Hrs/Mins): 1hr 38min - 1 Minute Total Score: 9 5 Minutes Total Score: 9 - [place] Feeding Plan Initial Plan: Elected not to breastfeed exclusively throughout hospitalization Remarks - Remarks Remarks: pp course uneventful discharge today Discharge Summary Problems reviewed: Yes Reason For Visit: LABOR ADMIT Current Active Problems Labor established (Acute) Normal spontaneous vaginal delivery (Acute) Post term over 40 weeks (Acute) Condition: Stable - Instructions Diet, Activity, Other Instructions: Discharge Instructions * Out of Bed * * Regular Diet * Nalini Care * Avoid sex for 6 weeks * rtc e weeks for f/u , call for appt If you experience excessive bleeding or fever over 101 degrees, call doctor, the clinic or go to the Emergency Room. Referrals: Brad Burnett MD [Staff Physician] - Disposition: HOME - Home Medications Comprehensive Discharge Medication List: Ambulatory Orders Vitamins (Sjr) - 1 tab PO DAILY 06/16/19 Acetaminophen [Tylenol .Regular Strength -] 650 mg PO Q3H PRN tablet 06/18/19 Benzocaine [Americaine 20% [place] -] 1 spray TP PRN PRN bottle 06/18/19 Ferrous Sulfate [Feosol] 325 mg PO DAILY #30 tab 06/18/19 Ibuprofen [Motrin -] 600 mg PO Q4H PRN #30 tablet 06/18/19 Vitamins (Sjr) - 1 tab PO DAILY #30 tablet 06/18/19 Witch Marlena 50% (Tucks) [Tucks Pads -] 1 pad TP PRN PRN pad 06/18/19
[2019-06-18] MEDS: PRENATAL VITAMINS W/ FOLIC ACID TABLET (FP) PO SCH (10:08)
[2019-06-18] MEDS: FERROUS SO4 325 MG TABLET (FP) PO SCH (10:08)
== END 2019-06-18 13:00 | disposition home or self-care (01) | DRG 560 ==
LOC: JDEL 02:40 → JLDR 03:15 → J3W 20:00
PROVIDERS: ADMIT Obstetrics & Gynecology; ATTEND Obstetrics & Gynecology
PROC: 10E0XZZ Delivery of Products of Conception, External Approach (ICD-10-PCS; principal; 2019-06-16)
PROC: 0W8NXZZ Division of Female Perineum, External Approach (ICD-10-PCS; 2019-06-16)
PROC: 0HQ9XZZ Repair Perineum Skin, External Approach (ICD-10-PCS; 2019-06-16)
DX: O48.0 Post-term pregnancy (principal); Z3A.40 40 weeks gestation of pregnancy; Z37.0 Single live birth; O62.2 Other uterine inertia
CPT/HCPCS: 36415; 36600; 59409; 80053; 81003; 82803; 85025; 85610; 85730; 86593; 86762; 86850; 86900; 86901; 87340; 87389

== ENCOUNTER 2020-09-30 18:00 | Inpatient (IN) | payer OTHER ==
[2020-09-30 18:26] VITALS: BMI 33.3
[2020-09-30] MEDS ORDERED: ELECTROLYTE-148 SOLN 1,000 ML IV SCH (18:45)
[2020-09-30] MEDS ORDERED: LIDOCAINE HCL 1% PRESERVATIVE FREE - 30ML VIAL ONE (19:14)
[2020-09-30] MEDS ORDERED: OXYTOCIN 20 UNITS in 0.9% NS 20 UNIT/1,000 ML INFUS.BAG IV ONE (19:14)
[2020-09-30 19:22] LABS: BASO % 0.2 % (0-2.0); EOS % 0.3 % (0-4.5); HEMATOCRIT 34.5 % (32.4-45.2); HEMOGLOBIN 11.5 GM/dL (10.7-15.3); LYMPH % 12.9 % (8-40); MCH 28.7 pg (25.7-33.7); MCHC 33.4 g/dl (32.0-36.0); MEAN CELL VOLUME 85.8 fl (80-96); MEAN PLT VOLUME 8.8 fl (7.5-11.1); MONO % 6.4 % (3.8-10.2); NEUT % 80.2 % (42.8-82.8); PLATELET COUNT 251 K/MM3 (134-434); RBC 4.02 M/mm3 (3.60-5.2); RDW 14.1 % (11.6-15.6); WHITE BLOOD COUNT 8.4 K/mm3 (4.0-10.0)
[2020-09-30 19:23] LABS: INR 0.93 (0.83-1.09); PROTHROMBIN TIME (PATIENT) 11.3 SEC (9.7-13.0)
[2020-09-30 19:27] LABS: ACTIVATED PTT 29.5 SECONDS (25.2-36.5)
[2020-09-30 19:33] LABS: CALCIUM 8.7 mg/dL (8.5-10.1)
[2020-09-30 19:34] LABS: BLOOD UREA NITROGEN 5.2 mg/dL (7-18)
[2020-09-30 19:37] LABS: CREATININE 0.6 mg/dL (0.55-1.3)
[2020-09-30] MEDS ORDERED: OXYTOCIN 30 UNITS in 0.9% NS 30 UNIT/500 ML INFUS.BAG IVPB ONE (20:42)
[2020-09-30] MEDS ORDERED: OXYTOCIN 30 UNITS in 0.9% NS 30 UNIT/500 ML INFUS.BAG IVPB SCH (21:00)
[2020-09-30] MEDS ORDERED: BENZOCAINE 28 GM HEMORRHOIDAL OINTMENT TP PRN (21:33)
[2020-09-30] MEDS ORDERED: WITCH HAZEL 50% (TUCKS) 40 PAD/JAR PAD TP PRN (21:33)
[2020-09-30] MEDS ORDERED: IBUPROFEN 600 MG TABLET (FP) PO PRN (21:33)
[2020-09-30] MEDS ORDERED: BISACODYL 10 MG SUPP.RECT RC PRN (21:33)
[2020-09-30] MEDS ORDERED: BENZOCAINE 20% 57 GM BOTTLE TP PRN (21:33)
[2020-09-30] MEDS ORDERED: ACETAMINOPHEN 325 MG TABLET (FP) PO PRN (21:33)
[2020-09-30] MEDS ORDERED: OXYTOCIN 20 UNITS in 0.9% NS 20 UNIT/1,000 ML INFUS.BAG IV SCH (21:45)
[2020-09-30] MEDS ORDERED: ACETAMINOPHEN 325 MG TABLET (FP) ONE (22:54)
[2020-09-30] MEDS ORDERED: IBUPROFEN 600 MG TABLET (FP) PO ONE (22:54)
[2020-10-01] MEDS ORDERED: OXYTOCIN 20 UNITS in 0.9% NS 20 UNIT/1,000 ML INFUS.BAG IV ONE (02:26)
[2020-10-01 10:29] LABS: BASO % 0.5 % (0-2.0); EOS % 0.4 % (0-4.5); HEMATOCRIT 30.8 % (32.4-45.2); HEMOGLOBIN 10.6 GM/dL (10.7-15.3); LYMPH % 12.8 % (8-40); MCHC 34.4 g/dl (32.0-36.0); MEAN CELL VOLUME 84.2 fl (80-96); MEAN PLT VOLUME 8.6 fl (7.5-11.1); MONO % 6.4 % (3.8-10.2); NEUT % 79.9 % (42.8-82.8); PLATELET COUNT 227 K/MM3 (134-434); RBC 3.66 M/mm3 (3.60-5.2); RDW 14.2 % (11.6-15.6); WHITE BLOOD COUNT 11.1 K/mm3 (4.0-10.0)
[2020-10-01] MEDS ORDERED: SENNOSIDES/DOCUSATE COMBO (SENNA PLUS) TABLET (UD) PO PRN (22:00)
[2020-10-02 10:17] VITALS: BP 91/59; PULSE 59; TEMP 98.3
== END 2020-10-02 15:40 | disposition home or self-care (01) | DRG 560 ==
LOC: JLDR 18:00 → J3W 10-01 06:36
PROVIDERS: ADMIT Student in an Organized Health Care Education/Training Program; ATTEND Student in an Organized Health Care Education/Training Program
PROC: 10E0XZZ Delivery of Products of Conception, External Approach (ICD-10-PCS; principal; 2020-09-30)
PROC: 0KQM0ZZ Repair Perineum Muscle, Open Approach (ICD-10-PCS; 2020-09-30)
PROC: 10907ZC Drainage of Amniotic Fluid, Therapeutic from Products of Conception, Via Natural or Artificial Opening (ICD-10-PCS; 2020-09-30)
DX: O70.1 Second degree perineal laceration during delivery (principal); Z3A.39 39 weeks gestation of pregnancy; Z37.0 Single live birth
CPT/HCPCS: 36415; 59409; 80048; 85025; 85610; 85730; 86780; 86850; 86900; 86901; C9803; U0003; U0005